=== PATIENT | female | born 1980 | race African-American/Black ===

== ENCOUNTER 2021-01-04 12:35 | Outpatient (CLI) | payer OTHER ==
[~2021-01-04 12:35] MED LIST: Magnevist 469MG/ML 20 ML VIAL ONE
[2021-01-04 13:08] LABS: Estimated GFR-MDRD - POC Greater than 90
== END 2021-01-04 12:36 | disposition home or self-care (01) ==
LOC: BICMRI 12:35
PROVIDERS: ATTEND Family Medicine
DX: R55 Syncope and collapse (principal)
CPT/HCPCS: 70553; 82565; A9579